=== PATIENT | male | born 1965 | race Caucasian/White ===

== ENCOUNTER 2019-06-29 12:02 | Outpatient (CLI) | payer OTHER, SELFPAY ==
--- NOTE | ~2019-06-29 | XR_ITS ---
EXAMINATION: XR chest 2V DATE: 06/29/2019 12:27 INDICATION: Chest pain, unspecified. Shortness of breath. TECHNIQUE: Frontal and lateral views of the chest were obtained. COMPARISON: Chest 2 views 05/30/2015, CT abdomen and pelvis 03/03/2018 FINDINGS: The chest demonstrates clear lungs without pneumonia, pleural effusion, or pneumothorax. Th e heart size is normal. IMPRESSION: 1. No acute cardiopulmonary disease. Reviewed, dictated and finalized at location A.
--- NOTE | 2019-06-29 12:08 | ECG_ITS ---
Measurements Intervals [place] Rate: 58 P: 57 IA: 187 QRS: 59 QRSD: 91 T: 39 QT: 394 QTc: 387 Interpretive Statements SINUS BRADYCARDIA BORDERLINE ECG Electronically Signed On 06-29-2019 13:43:14 CDT by Dieter Lantigua D.O.
== END 2019-06-29 12:03 | disposition home or self-care (01) ==
PROVIDERS: PCP Family Medicine; Visit Provider Family Medicine
DX: R07.9 Chest pain, unspecified (principal); R94.31 Abnormal electrocardiogram [ECG] [EKG]
CPT/HCPCS: 71046; 93005

== ENCOUNTER → 2020-04-14 12:14 | Outpatient (CLI) | payer OTHER, SELFPAY ==
--- NOTE | ~2020-04-14 | CT_ITS ---
EXAMINATION: CT brain wo con DATE: 04/14/2020 12:28 INDICATION: Headaches TECHNIQUE: Computed tomography (CT) of the head was performed without intravenous contrast. Sagittal and coronal reconstructions were performed. The mA was adjusted according to patient size. Iterative reconstruction technique was employed. The dose-length product was 599.57 mGy-cm. COMPARISON: None FINDINGS: No acute intracranial hemorrhage, acute infarction or abnormal extra axial fluid collection. Ventricl es are normal and symmetric. No mass/mass effect. Scleral banding procedure at the right orbit. Aguilar es of bilateral intraocular lens replacement. Bubbly mucus in the dependent aspect of the left spheno id sinus. Mild mucosal thickening in the bilateral ethmoid and maxillary sinuses. Mastoid air cells a nd middle ear cavities are clear. IMPRESSION: 1. Normal brain. No acute intracranial process. 2. Bubbly mucus in the left sphenoid sinus. Correlate clinically for acute sinusitis. Reviewed, dictated and finalized at location A. COLOGICAL ASSISTANT IMPRESSION: 1. Normal brain. No acute intracranial process. 2. Bubbly mucus in the left sphenoid sinus. Correlate clinically for acute sinu sitis.
== END ==
PROVIDERS: PCP Family Medicine; Visit Provider Family Medicine
DX: R51.9 Headache, unspecified (principal)
CPT/HCPCS: 70450

== ENCOUNTER 2020-09-22 00:39 | Day surgery (SDC) | payer OTHER, SELFPAY ==
[2020-09-12 15:39] VITALS: BMI 31.1
--- NOTE | 2020-09-15 07:08 | P.HP_ITS ---
History of Present Illness History of Present Illness Consent: Risks, benefits, and alternatives have been discussed and questions answered. Patient agrees to proceed with procedure. Chief complaint: Bulbous urethral stricture Narrative: Hesham Duval is a 54 year old male with a known history of urethral stricture disease who is having recurrent obstructive voiding symptoms. We have opted to forego office cystoscopy in proceed straight to cystoscopy with urethral dilatation. Review of Systems Cardiovascular: Cardiovascular: Denies chest pain, Denies lightheadedness, Denies palpitations and Denies dyspnea Respiratory: Respiratory: Denies dyspnea Gastrointestinal: Gastrointestinal: Denies diarrhea, Denies nausea and Denies vomiting Genitourinary: Genitourinary: Denies hematuria and Denies dysuria Endocrine: Endocrine: Denies palpitations PMFSH Past Medical History Medical History Acute non-recurrent maxillary sinusitis BPH without obstruction/lower urinary tract symptoms Chest pain COVID-19 (02/12/20) Encounter for prostate cancer screening Encounter for wellness examination in adult Exposure to COVID-19 virus Family history of brain tumor GERD (gastroesophageal reflux disease) Headache Hemorrhoids Hypogonadism male Male erectile dysfunction, unspecified Mixed hyperlipidemia Screening for malignant neoplasm of colon performed Seasonal allergic rhinitis Shift work sleep disorder Visual changes Surgical History Surgical History H/O elbow surgery (~2016) H/O eye surgery (~2018) H/O hand surgery (~2016) H/O knee surgery (~2008) H/O knee surgery (~2006) Family History Family History Father Hypertension Family history of malignant neoplasm Mother Family history of malignant neoplasm Social History Social History Smoking status: Never smoker Alcohol intake: current Drinks per week: 3 Substance use: never Substance use type: does not use Spiritual care concerns: No Meds Home Medications and Allergies Home Medications Medication Instructions Recorded Confirmed Type multivitamin [Daily Multivitamin] 1 tablet PO DAILY 09/12/20 09/12/20 History Allergies Allergy/AdvReac Type Severity Reaction Status Date / Time Penicillins Allergy Unknown Hives Verified 09/12/20 15:35 Exam Const: General: no acute distress Resp: Effort & Inspection: normal respiratory effort GI: Inspection: non-distended GI Palp: No abdominal tenderness and No Guarding due to palpation present (GI) Auscultation: normal bowel sounds Assessment and Plan Assessment and plan (1) Urethral stricture: Code(s): N35.919 - Unspecified urethral stricture, male, unspecified site Status: Acute Assessment and Plan: * Cystoscopy with urethral dilatation
[2020-09-22 06:04] VITALS: BP 138/81; PULSE 85; RESP 16; TEMP 36.5; O2SAT 95
--- NOTE | 2020-09-22 06:39 | WPDHPUPDATE1 ---
History and Physical Update Update Date/Time: 09/22/20 06:39 History and Physical has been reviewed, including an updated exam of the patient. There are NO changes in the patient's condition. Risks, benefits, and alternatives have been discussed and questions answered. Patient agrees to proceed with procedure.
[2020-09-22] MEDS: LACTATED RINGERS 1,000 ML 30 ML IV CONT (06:55)
--- NOTE | 2020-09-22 07:48 | WPDANESEPPF ---
Anes - Initial Pre Proc Eval Procedure: Operation Date: 09/22/20 08:30 Proposed Procedures p Cystoscopy, Urethral Dilatation - Zachary Aguilar MD Date/Time: 09/22/20 07:48 Surgeon: Zachary Aguilar MD Pre Op Diagnosis: Bulbous urethral stricture Patient Data Age: 54 Gender: M Height: 1.75 m Weight: 95.2 kg Last Vital Signs Temp 36.5 C 09/22/20 06:04 Pulse 85 09/22/20 06:04 Resp 16 09/22/20 06:04 BP 138/81 09/22/20 06:04 Pulse Ox 95 09/22/20 06:04 Allergies Allergy/AdvReac Type Severity Reaction Status Date / Time Penicillins Allergy Unknown Hives Verified 09/12/20 15:35 Home Medications Medication Instructions Recorded Confirmed Type multivitamin [Daily Multivitamin] 1 tablet PO DAILY 09/12/20 09/22/20 History Patient hx anesthesia problems: none Family hx anesthesia problems: none PMFSH Past Medical History Medical History Acute non-recurrent maxillary sinusitis BPH without obstruction/lower urinary tract symptoms Chest pain COVID-19 (02/12/20) Encounter for prostate cancer screening Encounter for wellness examination in adult Exposure to COVID-19 virus Family history of brain tumor GERD (gastroesophageal reflux disease) Headache Hemorrhoids Hypogonadism male Male erectile dysfunction, unspecified Mixed hyperlipidemia Screening for malignant neoplasm of colon performed Seasonal allergic rhinitis Shift work sleep disorder Visual changes Surgical History Surgical History H/O elbow surgery (~2016) H/O eye surgery (~2018) H/O hand surgery (~2016) H/O knee surgery (~2008) H/O knee surgery (~2006) Family History Family History Father Hypertension Family history of malignant neoplasm Mother Family history of malignant neoplasm Social History Social History Smoking status: Never smoker Alcohol intake: current Drinks per week: 3 Substance use: never Substance use type: does not use Living arrangements: with family Spiritual care concerns: No Anes - Eval Final PreProcedure Day of Procedure 09/22/20 07:48 Patient weight: obese Heart: regular rate and rhythm Lungs: clear to auscultation Airway: Mallampati scale class 1 Neurological: alert and oriented Last oral intake: >/= 8 hours ASA classification: II Emergent: no Anesthetic plan: proceed Anesthesia type and monitoring: general LMA and standard monitoring Informed Consent: The patient's anesthetic plan and its attendant risks and benefits were discussed with the patient/family/POA. Questions were solicited and answers provided to the satisfaction of the patient/family/POA.
[2020-09-22] MEDS: levoFLOXacin 500 MG/D5W 100 ML 500 MG/100 ML BAG 100 MG IVPB (08:26)
[2020-09-22] MEDS: KETOROLAC 15 MG/ML VIAL (*BKC) IV PUSH (08:40)
[2020-09-22] MEDS: LIDOCAINE HCL 2% GEL UROJET 10 ML PKG MUCOUS MEM (08:40)
--- NOTE | 2020-09-22 08:42 | W.PM.PROC2 ---
Procedure Note - Detailed Date of Procedure 09/22/20 Pre-op Diagnosis Bulbous urethral stricture Post-op Diagnosis same Procedure Performed Cystoscopy, urethral dilatation Surgeon Zachary Aguilar MD Musician Instrumental None Anesthesia general Indications Recurrent obstructive voiding symptoms Findings Moderately constricting bulbous urethral stricture Description of Procedure The patient was brought to the operative suite where he was prepped and draped in a routine sterile fashion while in a dorsal lithotomy position after the uneventful induction of a general LMA anesthetic. Cystoscopy was undertaken with a []cystoscope. There were no urethral strictures. The prostatic urethral estimated length was 1.5cm. There was mild obstruction of the prostatic urethra with no median lobe enlargement. The bladder itself was endoscopically normal without foreign body or neoplasm. The bladder mucosa was without hyperemia. There was a single orthotopic ureteral orifice bilaterally with clear efflux of urine. Using the [place] sounds I dilated the urethra 16F->18F. The bladder was emptied and the patient was taken to the recovery room in good condition Implants None Estimated Blood Loss 0 Drains No Packing No Pathology none sent Complications No immediate complications Condition stable Disposition PACU
[2020-09-22 08:48] VITALS: BP 103/57; PULSE 56; RESP 8; TEMP 36.2; O2SAT 97
[2020-09-22 09:03] VITALS: BP 131/78; PULSE 69; O2SAT 96
[2020-09-22 09:18] VITALS: BP 122/69; PULSE 60; RESP 10; O2SAT 97
[2020-09-22 09:35] VITALS: BP 142/65; PULSE 62
[2020-09-22 10:05] VITALS: BP 131/55; PULSE 62
--- NOTE | 2020-09-22 10:53 | SUR.PHASEII ---
1040- pt voided, bloody urine.
== END 2020-09-22 10:53 | disposition home or self-care (01) ==
PROVIDERS: PCP Family Medicine; Visit Provider Urology
PROC: 0T7D8ZZ Dilation of Urethra, Via Natural or Artificial Opening Endoscopic (ICD-10-PCS; CPT 52281; principal; 2020-09-22 08:30)
DX: N35.912 Unspecified bulbous urethral stricture, male (principal); Z86.16 Personal history of COVID-19; E66.9 Obesity, unspecified; Z68.31 Body mass index [BMI] 31.0-31.9, adult
CPT/HCPCS: 52281; A9270; J1885; J1956; J3010; J7120

== ENCOUNTER 2022-09-27 06:21 | Day surgery (SDC) | payer OTHER, SELFPAY ==
[2022-09-06 14:40] VITALS: BMI 32.5
[2022-09-12 08:32] VITALS: BMI 32.5
--- NOTE | 2022-09-26 12:05 | PM.HPGS ---
History of Present Illness History of Present Illness Consent: Risks, benefits, and alternatives have been discussed and questions answered. Patient agrees to proceed with procedure. Chief complaint: History of Colon Polyps Narrative: Hesham Duval is a 56 year old male Here for colon cancer screening. He has a history of polyps. Review of Systems Review of Systems: All systems reviewed & are unremarkable except as noted in HPI and below PMFSH Past Medical History Medical History Acute non-recurrent maxillary sinusitis BMI 31.0-31.9,adult BMI 32.0-32.9,adult muscular build BPH without obstruction/lower urinary tract symptoms Chest pain Chronic prostatitis/chronic pelvic pain syndrome COVID-19 (02/12/20) Decreased hearing of both ears Encounter for prostate cancer screening PSA 1.22 on 08/14/2021. Encounter for wellness examination in adult Exposure to COVID-19 virus Family history of brain tumor GERD (gastroesophageal reflux disease) Headache Hemorrhoids Hypogonadism male Testosterone 597 with free testosterone 96.2 on 08/14/2021. total testosterone 1085 with free testosterone 120.8 with hemoglobin 17.2 on 01/04/2022.Testosterone 569 with free testosterone 92.1 on 07/11/2022. Long-term current use of testosterone replacement therapy Male erectile dysfunction, unspecified intra cavernous injections from [facility] 0.1 cc ([id number]/phentolanine3/[id number]) Mixed hyperlipidemia Total cholesterol 181, triglycerides 114, HDL 55, LDL 105 on 08/14/2021. Cholesterol 180, triglycerides 233, HDL 50, LDL 95 on 07/11/2022. Obesity (BMI 30.0-34.9) Pharyngitis Polyp of colon colon polyp age [address] Nava with recheck in 5 years Screening for malignant neoplasm of colon performed Seasonal allergic rhinitis Shift work sleep disorder Visual changes Surgical History Surgical History H/O elbow surgery (~2016) H/O eye surgery (~2018) H/O hand surgery (~2016) H/O knee surgery (~2008) H/O knee surgery (~2006) Family History Family History Father Hypertension Family history of malignant neoplasm Mother Family history of malignant neoplasm Social History Social History Smoking status: Never smoker Alcohol intake: current Drinks per week: 5 Alcohol use details: beer Substance use: never Substance use type: does not use Lack of Transportation: No Lack of Food: Never True Current Housing: I Have Housing Concerned About Future Housing: No Difficulty Paying Gas/Electric Bills: No Difficulty Paying for Meds: No Currently Unemployed: No Education: Trade/Vocational Certificate Difficulty w/ Childcare or Family Care: No Living arrangements: with family Spiritual care concerns: No Meds Home Medications and Allergies Home Medications Medication Instructions Recorded Confirmed Type safety needles 23 gauge x 1 (BD #50 ea 08/01/22 08/01/22 Rx SafetyGlide Needle) syringe with needle, safety 3 mL #50 ea 08/01/22 08/01/22 Rx 18 gauge x 1 1/2 alfuzosin 10 mg tablet,extended 10 mg PO DAILY 09/12/22 09/27/22 History release 24 hr testosterone cypionate 200 mg/mL 200 mg IM WEEKLY #10 mL 09/17/22 09/27/22 Rx intramuscular oil Allergies Allergy/AdvReac Type Severity Reaction Status Date / Time Penicillins Allergy Unknown Hives Verified 09/27/22 06:51 Exam Const: General: alert Orientation/consciousness: patient oriented x3 Resp: Auscultation: clear to auscultation bilaterally Cardio: Rhythm: regular rhythm GI: GI Palp: Yes Soft to palpation and No Tenderness to palpation present (GI) Neuro: General: patient oriented x3 Assessment and Plan Assessment and plan (1) Colon cancer screening: Code(s): Z12.
--- NOTE | 2022-09-26 12:52 | WPDANESEPPF ---
Anes - Initial Pre Proc Eval Procedure: Operation Date: 09/27/22 08:00 Proposed Procedures p Diagnostic Colonoscopy - Jaron Nava MD Date/Time: 09/26/22 12:52 Surgeon: Jaron Nava MD Pre Op Diagnosis: History of Colon Polyps Patient Data Age: 56 Gender: M Height: 1.75 m Weight: 100 kg Allergies Allergy/AdvReac Type Severity Reaction Status Date / Time Penicillins Allergy Unknown Hives Verified 09/27/22 06:51 Home Medications Medication Instructions Recorded Confirmed Type safety needles 23 gauge x 1 (BD #50 ea 08/01/22 08/01/22 Rx SafetyGlide Needle) syringe with needle, safety 3 mL #50 ea 08/01/22 08/01/22 Rx 18 gauge x 1 03/26 alfuzosin 10 mg tablet,extended 10 mg PO DAILY 09/12/22 09/27/22 History release 24 hr testosterone cypionate 200 mg/mL 200 mg IM WEEKLY #10 mL 09/17/22 09/27/22 Rx intramuscular oil Patient hx anesthesia problems: none Family hx anesthesia problems: none Results Review: All pre-operative results and documents have been reviewed as part of the pre-operative evaluation. [facility] Past Medical History Medical History Acute non-recurrent maxillary sinusitis BMI 31.0-31.9,adult BMI 32.0-32.9,adult muscular build BPH without obstruction/lower urinary tract symptoms Chest pain Chronic prostatitis/chronic pelvic pain syndrome COVID-19 (02/12/20) Decreased hearing of both ears Encounter for prostate cancer screening PSA 1.22 on 08/14/2021. Encounter for wellness examination in adult Exposure to COVID-19 virus Family history of brain tumor GERD (gastroesophageal reflux disease) Headache Hemorrhoids Hypogonadism male Testosterone 597 with free testosterone 96.2 on 08/14/2021. total testosterone 1085 with free testosterone 120.8 with hemoglobin 17.2 on 01/04/2022.Testosterone 569 with free testosterone 92.1 on 07/11/2022. Long-term current use of testosterone replacement therapy Male erectile dysfunction, unspecified intra cavernous injections from [email or web address] 0.1 cc ([id number]/phentolanine3/[id number]) Mixed hyperlipidemia Total cholesterol 181, triglycerides 114, HDL 55, LDL 105 on 08/14/2021. Cholesterol 180, triglycerides 233, HDL 50, LDL 95 on 07/11/2022. Obesity (BMI 30.0-34.9) Pharyngitis Polyp of colon colon polyp age [address] Nava with recheck in 5 years Screening for malignant neoplasm of colon performed Seasonal allergic rhinitis Shift work sleep disorder Visual changes Surgical History Surgical History H/O elbow surgery (~2016) H/O eye surgery (~2018) H/O hand surgery (~2016) H/O knee surgery (~2008) H/O knee surgery (~2006) Family History Family History Father Hypertension Family history of malignant neoplasm Mother Family history of malignant neoplasm Social History Social History Smoking status: Never smoker Alcohol intake: current Drinks per week: 5 Alcohol use details: beer Substance use: never Substance use type: does not use Lack of Transportation: No Lack of Food: Never True Current Housing: I Have Housing Concerned About Future Housing: No Difficulty Paying Gas/Electric Bills: No Difficulty Paying for Meds: No Currently Unemployed: No Education: Trade/Vocational Certificate Difficulty w/ Childcare or Family Care: No Living arrangements: with family Spiritual care concerns: No Anes - Eval Final PreProcedure Day of Procedure 09/26/22 12:52 Patient weight: obese Heart: regular rate and rhythm Lungs: clear to auscultation Airway: Mallampati scale class 1 Neurological: alert and oriented Last oral intake: >/= 8 hours ASA classification: II Emergent: no Anesthetic plan: proceed Anesthesia type and monitoring: general GIVS and s
[2022-09-27 06:57] VITALS: BP 135/83; PULSE 66; RESP 16; TEMP 36.4; O2SAT 100
[2022-09-27] MEDS: LACTATED RINGERS 1,000 ML 150 ML IV CONT (07:07)
[2022-09-27 08:21] VITALS: BP 124/81; PULSE 74; RESP 20; O2SAT 100
[2022-09-27 08:31] VITALS: BP 123/83; PULSE 63; RESP 20; O2SAT 100
[2022-09-27 08:41] VITALS: BP 118/79; PULSE 56; RESP 20; O2SAT 100
--- NOTE | 2022-09-27 10:35 | WPDANESPN ---
Anes - Prog Note Post-Op Date/Time: 09/27/22 10:35 Cardiovascular status: normal Respiratory status: normal Airway patency: baseline Mental status: baseline Post-Op hydration status: normal Vital Signs: Last Vital Signs Temp 36.4 C 09/27/22 06:57 Pulse 56 L 09/27/22 08:41 Resp 20 09/27/22 08:41 BP 118/79 09/27/22 08:41 Pulse Ox 100 09/27/22 08:41 O2 Del Method Room Air 09/27/22 08:41 Pain Score (VAS): 0 I/O: Intake & Output 09/26/22 09/27/22 09/27/22 23:59 07:59 15:59 Intake Total 300 Balance 300 Post-procedural complaints: none Patient Feedback: Patient satisfied with anesthetic care.
== END 2022-09-27 08:45 | disposition home or self-care (01) ==
PROVIDERS: PCP Family Medicine; Visit Provider Internal Medicine Gastroenterology
PROC: 0DJD8ZZ Inspection of Lower Intestinal Tract, Via Natural or Artificial Opening Endoscopic (ICD-10-PCS; CPT 45378; principal; 2022-09-27 08:00)
DX: Z12.11 Encounter for screening for malignant neoplasm of colon (principal)
CPT/HCPCS: 45380

== ENCOUNTER 2022-09-27 09:00 | Outpatient (NON) | payer OTHER, SELFPAY | END 2022-09-27 09:01 | disposition home or self-care (01) | LOC: ANHLAB 09-28 08:42 | PROVIDERS: Visit Provider Internal Medicine Gastroenterology | DX: Z12.11 Encounter for screening for malignant neoplasm of colon (principal) | CPT/HCPCS: 88305 ==

== ENCOUNTER 2023-05-27 20:56 | Emergency (ER) | payer OTHER, SELFPAY ==
--- NOTE | 2023-05-27 20:58 | ECG_ITS ---
Measurements Intervals [place] Rate: 101 P: 41 IA: 144 QRS: 40 QRSD: 78 T: 53 QT: 290 QTc: 376 Interpretive Statements SINUS TACHYCARDIA VENTRICULAR PREMATURE COMPLEX NONSPECIFIC T-WAVE ABNORMALITY- INF/LAT LEADS BASELINE ARTIFACT- V5 BORDERLINE ECG COMPARED TO ECG 06/29/2019 12:14:58 SINUS TACHYCARDIA NOW PRESENT T-WAVE ABNORMALITY NOW PRESENT Electronically Signed On 05-28-2023 6:41:44 [employer] HEL[employer] by Dieter Lantigua D.O.
[2023-05-27 21:25] VITALS: BP 143/66; PULSE 100; RESP 20; TEMP 37.6; O2SAT 93
[2023-05-27 21:48] LABS: Influenza A QL RT-PCR Positive (Negative); Influenza B QL RT-PCR Negative (Negative); RSV RNA, RT-PCR Negative (Negative); SARS-CoV-2 RNA PCR Negative (Negative)
--- NOTE | 2023-05-28 00:42 | ED.URI ---
HPI - URI/Sore Throat General Chief Complaint: Upper Respiratory Infection Stated Complaint: sob, cough Time Seen by Provider: 05/28/23 00:10 History of Present Illness HPI Narrative: Patient is a 57-year-old male who presents to the emergency department this evening complaining of a cough and body aches which started on Saturday evening. 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 Patient admits that he has been running low-grade fevers today. He denies any shortness of breath, stating that the only thing that is bothering him is a Aurelio cough. Cough is nonproductive of any sputum. Patient is currently denying any additional symptoms including chest pain, nausea, vomiting, abdominal pain, dysuria or hematuria. He also denies any headaches, dizziness, or lightheadedness. There are no other modifying, alleviating, or precipitating factors at this time. Related Data Home Medications Medication Instructions Recorded Confirmed alfuzosin 10 mg tablet,extended 10 mg PO DAILY 09/12/22 02/07/23 release 24 hr Allergies Allergy/AdvReac Type Severity Reaction Status Date / Time Penicillins Allergy Unknown Hives Verified 02/07/23 11:22 Review of Systems Review of Systems: All systems are reviewed and are negative unless stated otherwise in the HPI. [facility] Past Medical History Medical History Acute non-recurrent maxillary sinusitis BMI 31.0-31.9,adult BMI 32.0-32.9,adult muscular build BPH without obstruction/lower urinary tract symptoms Chest pain Chronic prostatitis/chronic pelvic pain syndrome COVID-19 (02/12/20) Decreased hearing of both ears Encounter for prostate cancer screening PSA 1.22 on 08/14/2021. Encounter for wellness examination in adult Exposure to COVID-19 virus Family history of brain tumor GERD (gastroesophageal reflux disease) Headache Hemorrhoids Hypogonadism male Testosterone 597 with free testosterone 96.2 on 08/14/2021. total testosterone 1085 with free testosterone 120.8 with hemoglobin 17.2 on 01/04/2022.Testosterone 569 with free testosterone 92.1 on 07/11/2022. Testosterone 776 with free testosterone 151.8 on 01/18/2023. Long-term current use of testosterone replacement therapy Male erectile dysfunction, unspecified intra cavernous injections from [facility] 0.1 cc (/phentolanine3/[id number]) Mixed hyperlipidemia Total cholesterol 181, triglycerides 114, HDL 55, LDL 105 on 08/14/2021. Cholesterol 180, triglycerides 233, HDL 50, LDL 95 on 07/11/2022. Total cholesterol 186, HDL 52, triglycerides 46, LDL 108 with ratio 3.6 on 01/18/2023. Obesity (BMI 30.0-34.9) Pharyngitis Polyp of colon colon polyp age [address] Nava with recheck in 5 years Screening for malignant neoplasm of colon performed Seasonal allergic rhinitis Shift work sleep disorder Visual changes Surgical History Surgical History H/O elbow surgery (~2016) H/O eye surgery (~2018) H/O hand surgery (~2016) H/O knee surgery (~2008) H/O knee surgery (~2006) Family History Family History Father Hypertension Family history of malignant neoplasm Mother Family history of malignant neoplasm Social History Social History Smoking status: Never smoker Alcohol intake: current Drinks per week: 5 Alcohol use details: beer Substance use: never Substance use type: does not use Lack of Transportation: No Lack of Food: Never True Current Housing: I Have Housing Concerned About Future Housing: No Difficulty Paying Gas/Electric Bills: No Difficulty Paying for Meds: No Currently Unemployed: No Education: Trade/Vocational Certificate Difficulty w/ Childcare or Family Care
[2023-05-28] MEDS: OSELTAMIVIR PHOSPHATE 75 MG CAPSULE PO (00:58)
[2023-05-28 01:05] VITALS: BP 144/84; PULSE 89; RESP 17; TEMP 37.2; O2SAT 99
== END 2023-05-28 01:06 | disposition home or self-care (01) ==
PROVIDERS: Emergency Provider Emergency Medicine; PCP Family Medicine
DX: J10.1 Influenza due to other identified influenza virus with other respiratory manifestations (principal); N40.0 Benign prostatic hyperplasia without lower urinary tract symptoms; N41.9 Inflammatory disease of prostate, unspecified; E78.2 Mixed hyperlipidemia; E66.9 Obesity, unspecified; Z68.32 Body mass index [BMI] 32.0-32.9, adult; K21.9 Gastro-esophageal reflux disease without esophagitis; E29.1 Testicular hypofunction; N52.9 Male erectile dysfunction, unspecified; Z86.010 Personal history of colon polyps; Z86.16 Personal history of COVID-19; Z79.890 Hormone replacement therapy; R00.0 Tachycardia, unspecified; I49.3 Ventricular premature depolarization; R94.31 Abnormal electrocardiogram [ECG] [EKG]
CPT/HCPCS: 87637; 93005; 99283; A9270

== ENCOUNTER 2024-02-08 18:43 | Emergency (ER) | payer OTHER, SELFPAY ==
[2024-02-08 18:45] VITALS: BP 159/70; PULSE 72; RESP 18; TEMP 36.7; O2SAT 98
--- NOTE | 2024-02-08 19:18 | PC.NURSE ---
Report received from MARZENA Booth. Assumed care of patient at this time.
--- NOTE | 2024-02-08 19:29 | ED_ITS ---
HPI - General Adult General Chief complaint: Environmental Exposure Stated complaint: body fluid exposure Time Seen by Provider: 02/08/24 18:51 Source: patient Mode of arrival: ambulatory Limitations: no limitations History of Present Illness HPI narrative: This is a 58-year-old male who presents to the ED for possible blood exposure. 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 reports that 1 of the EMS workers told him that she had blood on her fingers. While attempting to transfer her to stretcher she accidentally stuck her finger in the patient's mouth. He states that he is unsure if he was actually exposed her blood or not. They are unsure of her medical history including HIV and hepatitis but does note that she is an IV drug user. Otherwise patient has no complaints. Related Data Home Medications Medication Instructions Recorded Confirmed alfuzosin 10 mg tablet,extended 10 mg PO DAILY 09/12/22 08/26/23 release 24 hr tadalafil 5 mg tablet (Cialis) 5 mg PO DAILY 08/26/23 08/26/23 Allergies Allergy/AdvReac Type Severity Reaction Status Date / Time Penicillins Allergy Unknown Hives Verified 02/08/24 18:49 Review of Systems Review of Systems: All systems as dictated in [facility] Past Medical History Medical History (Updated 08/26/23 @ 10:18 by Laina Hernandez NP) Acute non-recurrent maxillary sinusitis BMI 31.0-31.9,adult BMI 32.0-32.9,adult muscular build BPH without obstruction/lower urinary tract symptoms Chest pain Chronic prostatitis/chronic pelvic pain syndrome COVID-19 (02/12/20) Decreased hearing of both ears Encounter for prostate cancer screening PSA 1.22 on 08/14/2021. PSA 1.66 on 07/16/2023. Encounter for wellness examination in adult Exposure to COVID-19 virus Family history of brain tumor GERD (gastroesophageal reflux disease) Headache Hemorrhoids Hypersomnia Hypogonadism male Testosterone 597 with free testosterone 96.2 on 08/14/2021. total testosterone 1085 with free testosterone 120.8 with hemoglobin 17.2 on 01/04/2022.Testosterone 569 with free testosterone 92.1 on 07/11/2022. Testosterone 776 with free testosterone 151.8 on 01/18/2023. Influenza A (~05/27/23) Long-term current use of testosterone replacement therapy Male erectile dysfunction, unspecified intra cavernous injections from [facility] 0.1 cc ([id number]/phentolanine3/[id number]) Mixed hyperlipidemia Total cholesterol 181, triglycerides 114, HDL 55, LDL 105 on 08/14/2021. Cholesterol 180, triglycerides 233, HDL 50, LDL 95 on 07/11/2022. Total cholesterol 186, HDL 52, triglycerides 46, LDL 108 with ratio 3.6 on 01/18/2023. Obesity (BMI 30.0-34.9) Pharyngitis Polyp of colon colon polyp age [address] Nava with recheck in 5 years Screening for malignant neoplasm of colon performed Seasonal allergic rhinitis Shift work sleep disorder Snoring Visual changes Surgical History Surgical History H/O elbow surgery (~2016) H/O eye surgery (~2018) H/O hand surgery (~2016) H/O knee surgery (~2008) H/O knee surgery (~2006) Family History Family History Father Hypertension Family history of malignant neoplasm Mother Family history of malignant neoplasm Social History Social History Smoking status: Never smoker Alcohol intake: current Drinks per week: 5 Alcohol use details: beer Substance use: never Substance use type: does not use Lack of Transportation: No Lack of Food: Never True Current Housing: I Have Housing Concerned About Future Housing: No Difficulty Paying Gas/Electric Bills: No Difficulty Paying for Meds: No Currently Unemployed: No Education: Trade/Vocational Certificate Difficulty w/ Childcare or Family Care: No Living arrangements: with family Spiritual care concerns: No Exam Narrative: GENERAL: Well-appearing, well-nourished, and in no acute distress. HEAD: Normocephalic, atraumatic. MSK: Normal range of motion. No edema. SKIN: Warm, dry, no rash. NEURO: Alert and oriented x4. No focal deficits. PSYCH: Normal mood and affect. Course Vital Signs Vital signs: Vital Signs Temperature 98.0 F 02/08/24 18:45 Pulse Rate 72 02/08/24 18:45 Respiratory Rate 18 02/08/24 18:45 Blood Pressure 159/70 H 02/08/24 18:45 Pulse Oximetry 98 02/08/24 18:45 Oxygen Delivery Room Air 02/08/24 18:45 Temperature 98.0 F 02/08/24 18:45 Pulse Rate 72 02/08/24 18:45 Respiratory Rate 18 02/08/24 18:45 Blood Pressure 159/70 H 02/08/24 18:45 Pulse Oximetry 98 02/08/24 18:45 Oxygen Delivery Room Air 02/08/24 18:45 Medical Decision Making MDM Narrative Medical decision making narrative: This is a 58 yo male who presents to the ED for possible bodily fluid exposure. 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 Vitals are normal. No other complaints. Patient did have possible mucosal exposure to another person's blood. He is concerned that this person is a chronic IV drug user. This does but the patient at possible HIV risk. I explained that given his story, he would fall into the likely low risk category but offered PEP regardless. He would like for the prescriptions to be sent and he will to contact his PCP on Saturday. This will allow him to stay within the 72 hour window and have PCP follow-up on this issue. Patient will be discharged in stable condition. Supportive measures discussed and return precautions given. Patient is understanding and agreeable with plan for discharge with PCP follow-up. Vital Signs Vital Signs: Vital Signs Temperature 98.0 F 02/08/24 18:45 Pulse Rate 72 02/08/24 18:45 Respiratory Rate 18 02/08/24 18:45 Blood Pressure 159/70 H 02/08/24 18:45 Pulse Oximetry 98 02/08/24 18:45 Oxygen Delivery Room Air 02/08/24 18:45 Temperature 98.0 F 02/08/24 18:45 Pulse Rate 72 02/08/24 18:45 Respiratory Rate 18 02/08/24 18:45 Blood Pressure 159/70 H 02/08/24 18:45 Pulse Oximetry 98 02/08/24 18:45 Oxygen Delivery Room Air 02/08/24 18:45 Lab Data Labs: Lab Results 02/08/24 Range/Units 19:16 Hep Bs Antibody Negative Hepatitis C Ab Screen Negative (Negative) HIV 1&2 Ab/P24 Ag 4thGn Negative (Negative) Discharge Plan Discharge Clinical Impression: Occupational exposure in workplace Patient Disposition: Home, Self-Care Condition: Stable Instructions: Antibiotic Form Additional Instructions: Your exposure level today is probably very low. HIV prophylaxis medications have been prescribed. Please follow-up with your PCP on Saturday for definitive management. If you have any new or worsening symptoms please return to the ER for further evaluation. Prescriptions: New raltegravir 400 mg tablet 400 mg PO BID 28 Days Qty: 56 0RF emtricitabine-tenofovir (TDF) [Truvada] 200-300 mg tablet 1 tablet PO DAILY 28 Days Qty: 28 0RF No Action (DME) BD SafetyGlide Needle 23 gauge x 1 needle See Rx Instructions .Route Qty: 50 1RF Rx Instructions: 23 gauge x 1 in, use weekly to inject testosterone (DME) syringe with needle, safety 3 mL 18 gauge x 1 1/2 syringe See Rx Instructions .Route Qty: 50 1RF Rx Instructions: 18 gauge 1-1/2 inch needle,use once weekly to draw up testosterone tadalafil [Cialis] 5 mg tablet 5 mg PO DAILY hydrocortisone [Anusol-HC] 2.5 % cream with perineal applicator 1 applic RECTAL BID PRN (Reason: hemorrhoids) Qty: 30 11RF fluticasone propionate [Flonase Allergy Relief] 50 mcg/actuation spray,suspension 1 spray intranasal BID Qty: 16 1RF Rx Instructions: administer into each nostril testosterone cypionate 200 mg/mL oil 200 mg IM WEEKLY Qty: 10 2RF doxycycline hyclate 100 mg tablet 100 mg PO BID Qty: 20 0RF alfuzosin 10 mg tablet extended release 24 hr 10 mg PO DAILY Follow-up/Referrals: Neil Akbar MD [Primary Care Provider] - Time of Disposition: 19:34
[2024-02-08 20:15] LABS: HIV 1/2 Ab P24 Ag Result Negative (Negative)
[2024-02-08 20:23] LABS: Hepatitis B Surface Anti Res Negative; Hepatitis C Virus Antibody Negative (Negative)
== END 2024-02-08 19:49 | disposition home or self-care (01) ==
PROVIDERS: Emergency Medicine; Emergency Provider Physician Assistant; PCP Family Medicine
DX: Z77.21 Contact with and (suspected) exposure to potentially hazardous body fluids (principal); E78.2 Mixed hyperlipidemia; E66.9 Obesity, unspecified; Z68.32 Body mass index [BMI] 32.0-32.9, adult; K21.9 Gastro-esophageal reflux disease without esophagitis; N40.0 Benign prostatic hyperplasia without lower urinary tract symptoms; G47.26 Circadian rhythm sleep disorder, shift work type; Z86.16 Personal history of COVID-19; Z86.0100 Personal history of colon polyps, unspecified; Z79.899 Other long term (current) drug therapy; Z79.890 Hormone replacement therapy
CPT/HCPCS: 36415; 86703; 86706; 86803; 99283; G0432

== ENCOUNTER → 2024-05-27 10:42 | Outpatient (CLI) | payer OTHER, SELFPAY ==
--- NOTE | ~2024-05-27 | XR_ITS ---
XR cervical spine 4-5V Ordering provider: Neil Akbar MD History: . M54.2 - Cervicalgia . Comparison: None. FINDINGS: VERTEBRAL BODIES: Normal height and alignment. No visible fracture or subluxation. The dens is intact . DISK SPACES: Well maintained. PARASPINOUS SOFT TISSUES: No prevertebral soft tissue swelling. IMPRESSION: No acute osseous abnormality cervical spine. Reviewed, dictated and finalized at location A. RAL STORES ATTENDANT
--- OUTSIDE RECORDS SUMMARY | 2024-05-27 12:15 | XMS_ITS | Referral Summary ---
Author Organization [facility] Address [address] [place] [address] Care Team Providers Care Nuclear Design Engineer Name Role Phone Yobany Grimes MD Unavailable Neil Akbar MD Primary Care Provider [phone] Source Comments [facility],non-owned Affiliates and Associated Physician Practices is amultiple site organization consisting of ambulatory clinics and hospital sitesin [place], [place], [place] and [place]. This disclosure is being madepursuant to the Care Everywhere program and may not contain all information available regarding this patient. Last updated 17.[facility] Encounters Date Type Department Care Team Description 03/27/2024 Telephone [facility] [address] [place] [address] Naa Humphries APRN-CNP Follow-up 03/13/2024 Travel 03/13/2024 9:30 AM ENGLISH COMPOSITION TEACHER Office Visit [facility] - Urology [address] [place] [address] Naa Humphries APRN-CNP BPH with obstruction/lower urinary tract symptoms (Primary Dx); Urinary frequency; Nocturia; Overactive bladder; Erectile dysfunction, unspecified erectile dysfunction type from Last 3 Months Allergies Active Allergy Reactions Criticality Noted Date Comments Penicillins Urticaria Medium 07/07/2016 Medications * Be aware that medications may not be up to date on this document. Alwaysverify current medications with the patient. Medication Sig Dispensed Refills Start Date End Date Status testosterone cypionate (Depo-Testostero ne) 200 MG/ML injection INJECT 200 MG INTRAMUSCULARLY WEEKLY A SINGLE DOSE 12/25/2022 Active tadalafil (Cialis) 10 MG tabletIndication s:BPH with obstruction/lowe r urinary tract symptoms Take 1 (one) tablet by mouth once daily as needed (before sex for a better erection) 30 tablet 2 12/20/2023 Active tamsulosin (Flomax) 0.4 MG capsule Take 1 (one) capsule by mouth once daily At the same time every day after a meal. 30 capsule 3 03/13/2024 Active Active Problems Problem Noted Date Diagnosed Date GERD (gastroesophageal reflux disease) 0 Social History Tobacco Use Types Packs/Day Years Used Date Smoking Tobacco: Never Smokeless Tobacco: Never Tobacco Cessation:Counseling Given: Not Answered Alcohol Use Standard Drinks/Week Comments Yes 0 (1 standard drink = 0.6 oz pur e alcohol) socially Sex and Gender Information Value Date Recorded Sex Assigned at Not on file Gender Identity Not on file Sexual Orientation Not on file Last Filed Vital Signs Vital Sign Reading Time Taken Comments Blood Pressure 134/79 03/13/2024 9:15 AM ENGLISH COMPOSITION TEACHER Pulse 73 03/13/2024 9:15 AM ENGLISH COMPOSITION TEACHER Temperature 36.6 C (97.9 F) 03/13/2024 9:15 AM ENGLISH COMPOSITION TEACHER Respiratory Rate 18 03/13/2024 9:15 AM ENGLISH COMPOSITION TEACHER Oxygen Saturation 97% 03/13/2024 9:15 AM ENGLISH COMPOSITION TEACHER Inhaled Oxygen Concentration - - Weight 100.7 kg (222 lb) 03/13/2024 9:15 AM ENGLISH COMPOSITION TEACHER Height 175.3 cm (5' 9 ) 03/13/2024 9:15 AM ENGLISH COMPOSITION TEACHER Body Mass Index 32.78 03/13/2024 9:15 AM ENGLISH COMPOSITION TEACHER Plan of Treatment Upcoming Encounters Date Type Department Care Team (Late st Contact Info) Description 08/10/2024 1:30 PM CDT Office Visit [facility] - Urology [address] [place] [address] [address] [place] [address] Naa Humphries, PUBLIC HEALTH SERVICE OFFICER-MANAGER PRIVACY [address] [facility] [place] [address] Procedures Procedure Name Priority Date/Time Associated Diagnosis Comments PSA FREE + TOTAL PANEL Routine 03/21/2024 8:00 AM ENGLISH COMPOSITION TEACHER BPH with obstruction/lower urinary tract symptoms [place] MSR PVR U&/BLADD CAPCTY US NON Routine 03/13/2024 10:13 AM ENGLISH COMPOSITION TEACHER BPH with obstruction/lower urinary tract symptoms from Last 3 Months Results * PSA FREE + TOTAL PANEL (03/21/2024 8:00 AM ENGLISH COMPOSITION TEACHER) PSA TNP ng/mL [facility] Comment: TEST NOT PERFORMED Due to a laboratory error, we are unable to perform this test. Specimen exceeded stability due to incorrect storage. NO COLLECTION DATE RECEIVED. WE HAVE USED THE DATE THE SPECIMEN WAS RECEIVED BY THIS LABORATORY THE COLLECTION DATE. IF THIS IS INCORRECT, PLEASE CONTACT CLIENT SERVICES. PHONE NUMBER: [phone] Test Performed at: [facility] [address] [address] LUIZA SPENCER Blood BLOOD SPECIMEN / Unknown 03/14/2024 2:39 PM ENGLISH COMPOSITION TEACHER Naa RE[facility] - CHEMISTRY ORDERABLES [facility] [id number] [place] [address] * [place] MSR PVR U&/BLADD CAPCTY US NON (03/13/2024 10:13 AM ENGLISH COMPOSITION TEACHER) Narrative Naa Humphries APRN-CNP - 03/13/2024 10:13 AM ENGLISH COMPOSITION TEACHER Naa Humphires APRN-CNP 03/13/2024 10:13 AM PVR 17ml Naa REESE PROCEDURE/MINOR SURGICAL ORDERABLES from Last 3 Months Care Teams Nuclear Design Engineer Relationship Specialty Start Date End Date Neil Akbar MD [address] [place] [address] PCP - General 03/13/21 Yobany Grimes MD [facility] [place] [address] Family Medicine 09/20/20
--- OUTSIDE RECORDS SUMMARY | 2024-05-27 12:15 | XMS_ITS | Clinical Summary ---
Author Organization [facility] Address [address] [place] [address] Care Team Providers Care Pitch Worker Name Role Phone Yobany Grimes MD Unavailable Neil Akbar MD Primary Care Provider [phone] Source Comments [facility],non-owned Affiliates and Associated Physician Practices is amultiple site organization consisting of ambulatory clinics and hospital sitesin [place], [place] and [place]. This disclosure is being madepursuant to the Care Everywhere program and may not contain all information available regarding this patient. Last updated 17.[facility] Allergies Active Allergy Reactions Criticality Noted Date [...] Diagnosed Date GERD (gastroesophageal reflux disease) 0 Encounters Date Type Department Care Team Description 03/27/2024 Telephone [facility] [address] [place] [address] Naa Humphries APRN-CNP Follow-up 03/13/2024 9:30 AM SPRING PRODUCTION SUPERVISOR Office Visit [facility] - Urology [address] [place] [address] Naa Humphries APRN-CNP BPH with obstruction/lower urinary tract symptoms (Primary Dx); Urinary frequency; Nocturia; Overactive bladder; Erectile dysfunction, unspecified erectile dysfunction type 03/13/2024 Travel from Last 3 Months Social History Tobacco Use Types Packs/Day Years [...] Comments Blood Pressure 134/79 03/13/2024 9:15 AM SPRING PRODUCTION SUPERVISOR Pulse 73 03/13/2024 9:15 AM SPRING PRODUCTION SUPERVISOR Temperature 36.6 C (97.9 F) 03/13/2024 9:15 AM SPRING PRODUCTION SUPERVISOR Respiratory Rate 18 03/13/2024 9:15 AM SPRING PRODUCTION SUPERVISOR Oxygen Saturation 97% 03/13/2024 9:15 AM SPRING PRODUCTION SUPERVISOR Inhaled Oxygen Concentration - - Weight 100.7 kg (222 lb) 03/13/2024 9:15 AM SPRING PRODUCTION SUPERVISOR Height 175.3 cm (5' 9 ) 03/13/2024 9:15 AM SPRING PRODUCTION SUPERVISOR Body Mass Index 32.78 03/13/2024 9:15 AM SPRING PRODUCTION SUPERVISOR Plan of Treatment Upcoming Encounters Date Type Department Care Team (Late st Contact Info) Description 08/10/2024 1:30 PM CDT Office Visit [facility] - Urology [address] [place] [address] [address] [place] [address] Naa Humphries APRN-CNP [address] [facility] [place] [address] Health Maintenance Due Date Last Done Comments COLOGUARD (AGES 45-75) - COL ON CA SCREENING 1967 COLON MONITORING 1967 COLONOSCOPY - COLON CA SCREENING 1967 CT COLONOGRAPHY - COLON CA SCREENING 1967 Colorectal Cancer Screening 1967 FIT - COLON CA SCREENING 1967 FLEX SIG - COLON CA SCREENING 1967 LIPID TESTING 1967 HIV SCREENING 12/16/1982 HEPATITIS C SCREENING 12/12/1985 DTAP/TDAP/TD VACCINES (1 - Tdap) 12/16/1986 HEPATITIS B VACCINE (1 of 3 - 19+ 3-dose series) 12/16/1986 PNEUMOCOCCAL VACCINE 50+ (1 of 1 - PCV) 12/16/2017 ZOSTER VACCINE (1 of 2) 12/16/2017 SCREENING FOR DIABETES 01/14/2023 COVID-19 VACCINE (1 - 2023-2 5 season) 2023 INFLUENZA VACCINE (#1) 2023 DEPRESSION SCREENING 03/25/2024 HIB VACCINE Aged Out No longer eligi ble based on patient's age to complete this topic HPV VACCINE Aged Out No longer eligi ble based on patient's age to complete this topic MENINGOCOCCAL (Group B) VACCINE Aged Out No longer eligible based on patient's age to complete this topic MENINGOCOCCAL VACCINE Aged Out No camilla leland eligible based on patient's age to complete this topic Procedures Procedure Name Priority Date/Time Associated Diagnosis Comments PSA FREE + TOTAL PANEL Routine 03/21/2024 8:00 AM SPRING PRODUCTION SUPERVISOR BPH with obstruction/lower urinary tract symptoms OR MSR PVR U&/BLADD CAPCTY US NON Routine 03/13/2024 10:13 AM SPRING PRODUCTION SUPERVISOR BPH with obstruction/lower urinary tract symptoms from Last 3 Months Results * PSA FREE + TOTAL PANEL (03/21/2024 8:00 AM SPRING PRODUCTION SUPERVISOR) PSA TNP ng/mL [facility] Comment: TEST NOT PERFORMED Due to a laboratory error, we are unable to perform this test. Specimen exceeded stability due to incorrect storage. NO COLLECTION DATE RECEIVED. WE HAVE USED THE DATE THE SPECIMEN WAS RECEIVED BY THIS LABORATORY THE COLLECTION DATE. IF THIS IS INCORRECT, PLEASE CONTACT CLIENT SERVICES. PHONE NUMBER: [phone] Test Performed at: [facility] [place] [address] [place] [address] LUIZA SPENCER Blood BLOOD SPECIMEN / Unknown 03/14/2024 2:39 PM SPRING PRODUCTION SUPERVISOR Naa Humphries COLORING ROOM WORKER-GRAVEL SCREENER LAB - CHEMISTRY ORDERABLES [facility] [id number] [place] [address] * [place] MSR PVR U&/BLADD CAPCTY US NON (03/13/2024 10:13 AM SPRING PRODUCTION SUPERVISOR) Narrative Naa Humphries COLORING ROOM WORKER-GRAVEL SCREENER - 03/13/2024 10:13 AM SPRING PRODUCTION SUPERVISOR Naa Humphries COLORING ROOM WORKER-GRAVEL SCREENER 03/13/2024 10:13 AM PVR 17ml Naa Humphries COLORING ROOM WORKER-GRAVEL SCREENER PROCEDURE/MINOR SURGICAL ORDERABLES from Last 3 Months Care Teams Pitch Worker Relationship Specialty Start Date End Date Neil Akbar MD [address] [place] [address] PCP - General 03/13/21 Yobany Grimes MD [facility] [place] [address] Family Medicine 09/20/20
--- OUTSIDE RECORDS SUMMARY | 2024-05-27 12:15 | XMS_ITS | Patient Health Summary ---
Author Organization [facility] Address [address] [place] [address] Care Team Providers Care Refrigeration Plant Cork Insulator Name Role Phone Yobany Grimes MD Unavailable Neil Akbar MD Primary Care Provider [phone] Note from [facility],non-owned Affiliates and Associated Physician Practices is amultiple site organization consisting of ambulatory clinics and hospital sitesin [place], [place], [place]. This disclosure is being madepursuant to the Care Everywhere program and may not contain all information available regarding this patient. Last updated 17.[facility] Allergies * Penicillins(Urticaria) -Medium Criticality Medications * Be aware that medications may not be up to date on this document. Alwaysverify current medications with the patient. * testosterone cypionate (Depo-Testosterone) 200 MG/ML injection(Started 12/25/2022) INJECT 200 MG INTRAMUSCULARLY WEEKLY A SINGLE DOSE * tadalafil (Cialis) 10 MG tablet(Started 12/20/2023) Take 1 (one) tablet by mouth once daily as needed (before sex for a better erection) 2 refills by 12/19/2024 * tamsulosin (Flomax) 0.4 MG capsule(Started 03/13/2024) Take 1 (one) capsule by mouth once daily At the same time every day after a meal. 3 refills by 03/13/2025 Active Problems Problem Noted Date Diagnosed Date [...] Comments Blood Pressure 134/79 03/13/2024 9:15 AM ADMINISTRATIVE SUPPORT MANAGER Pulse 73 03/13/2024 9:15 AM ADMINISTRATIVE SUPPORT MANAGER Temperature 36.6 C (97.9 F) 03/13/2024 9:15 AM ADMINISTRATIVE SUPPORT MANAGER Respiratory Rate 18 03/13/2024 9:15 AM ADMINISTRATIVE SUPPORT MANAGER Oxygen Saturation 97% 03/13/2024 9:15 AM ADMINISTRATIVE SUPPORT MANAGER Inhaled Oxygen Concentration - - Weight 100.7 kg (222 lb) 03/13/2024 9:15 AM ADMINISTRATIVE SUPPORT MANAGER Height 175.3 cm (5' 9 ) 03/13/2024 9:15 AM ADMINISTRATIVE SUPPORT MANAGER Body Mass Index 32.78 03/13/2024 9:15 AM ADMINISTRATIVE SUPPORT MANAGER Procedures * PSA FREE + TOTAL PANEL(Performed 03/21/2024) Performed for BPH with obstruction/lower urinary tract symptoms * MA MSR PVR U&/BLADD CAPCTY US NON(Performed 03/13/2024) Performed for BPH with obstruction/lower urinary tract symptoms * PROC UROFLOWMETRY(Performed 12/20/2023) Performed for BPH with obstruction/lower urinary tract symptoms * MA MSR PVR U&/BLADD CAPCTY US NON(Performed 12/20/2023) Performed for BPH with obstruction/lower urinary tract symptoms * MA CYSTOURETHROSCOPY(Performed 03/29/2023) Performed for Overactive bladder, BPH with obstruction/lower urinary tract symptoms * MA INTRAABDOMINAL PRESSURE TEST(Performed 03/29/2023) Performed for Overactive bladder, BPH with obstruction/lower urinary tract symptoms * MA ANAL/URINARY MUSCLE STUDY(Performed 03/29/2023) Performed for Overactive bladder, BPH with obstruction/lower urinary tract symptoms * MA ELECTRO-UROFLOWMETRY, FIRST(Performed 03/29/2023) Performed for Overactive bladder, BPH with obstruction/lower urinary tract symptoms * MA CYSTOMETROGRAM W/PELT DROPPER(Performed 03/29/2023) Performed for Overactive bladder, BPH with obstruction/lower urinary tract symptoms * URINALYSIS AUTO - POINT OF CARE (AMB) [facility](Performed 03/29/2023) Performed for Overactive bladder * URINALYSIS AUTO - POINT OF CARE (AMB) [facility](Performed 01/14/2023) Performed for Urinary frequency, Pelvic pain * DERMATOPATHOLOGY(Performed 09/19/2020) * DERMATOPATHOLOGY(Performed 05/02/2017) * DERMATOPATHOLOGY(Performed 01/08/2017) * STREP A SCREEN - POINT OF CARE (AMB) [facility](Performed 07/07/2016) Performed for Acute pharyngitis, unspecified etiology * DERMATOPATHOLOGY(Performed 10/04/2015) Results * PSA FREE + TOTAL PANEL (03/21/2024 8:00 AM ADMINISTRATIVE SUPPORT MANAGER) PSA TNP ng/mL [facility] Comment: TEST NOT PERFORMED Due to a laboratory error, we are unable to perform this test. Specimen exceeded stability due to incorrect storage. NO COLLECTION DATE RECEIVED. WE HAVE USED THE DATE THE SPECIMEN WAS RECEIVED BY THIS LABORATORY THE COLLECTION DATE. IF THIS IS INCORRECT, PLEASE CONTACT CLIENT SERVICES. PHONE NUMBER: [phone] Test Performed at: [facility] [address] [address] LUIZA SPENCER Blood BLOOD SPECIMEN / Unknown 03/14/2024 2:39 PM ADMINISTRATIVE SUPPORT MANAGER Naa REESE LAB - CHEMISTRY ORDERABLES [facility] [address] [place] [address] * MA MSR PVR U&/BLADD CAPCTY US NON (03/13/2024 10:13 AM ADMINISTRATIVE SUPPORT MANAGER) Narrative Naa Humphries APRN-CNP - 03/13/2024 10:13 AM ADMINISTRATIVE SUPPORT MANAGER Naa Humphries APRN-CNP 03/13/2024 10:13 AM PVR 17ml Naa REESE PROCEDURE/MINOR SURGICAL ORDERABLES * PROC UROFLOWMETRY (12/20/2023 10:20 AM CDT) Narrative Ramona Membreno LPN - 12/20/2023 10:20 AM CDT Ramona Membreno LPN 12/20/2023 1:14 PM Voiding Time T100 106.7 s Flow Time TQ 106.6 s Time to max Flow TQmax 4.2 s Max Flow Rate Qmax 8.5Ml/s Average Flow Rate Qave 4.4Ml/s Intervals 1 Voided Volume Vcomp 466ml Naa Haynesman JEWELRY STORE MANAGER-FIELD CARE COORDINATOR PROCEDURE/MINOR SURGICAL ORDERABLES * MA MSR PVR U&/BLADD CAPCTY US NON (12/20/2023 10:20 AM CDT) Narrative Ramona Membreno LPN - 12/20/2023 10:20 AM CDT Ramona Membreno LPN 12/20/2023 1:14 PM Bladder Scan performed on 11/13/2023: Results showinmL Naa Humphries JEWELRY STORE MANAGER-FIELD CARE COORDINATOR PROCEDURE/MINOR SURGICAL ORDERABLES * MA CYSTOURETHROSCOPY (03/29/2023 12:06 PM ADMINISTRATIVE SUPPORT MANAGER) Narrative Rohan Dodson MD - 03/29/2023 12:06 PM ADMINISTRATIVE SUPPORT MANAGER Rohan Dodson MD 03/29/2023 12:07 PM Cystoscopy procedure note Indication for Procedure: urinary frequency/urgency, incomplete emptying, hx of possible stricture Description: Pt placed on the procedure table in supine position. he was prepped/draped in standard fashion. Pt correctly identified and time out performed. A flexible cystoscope was introduced per urethra withthe following findings. Urethra: Normal caliber, no stricture. No masses. Urethral sphincter with good coaptation Prostate - positive prostatic hyperplasia present Verumontanum in normal position Bladder neck patent without contracture Trigone - UO's orthotopic bilaterally. Clear efflux seen from both ureteral orifices. Mucosa normal without lesion. + intravesical component of prostate present Bladder - normal mucosa without tumor/stone/erythema. No FB present. Mild trabeculation. No cellules or diverticula. No fistula. Scope was retroflexed to assess entire surface of bladder. IMPRESSION: BPH with irritative voiding sx PLAN: See uds note. Rohan Dodson MD Rohan Dodson MD PROCEDURE/MINOR LAURA RGICAL ORDERABLES * MA CYSTOMETROGRAM W/PELT DROPPER, MA ELECTRO-UROFLOWMETRY, FIRST, MA ANAL/URINARY MUSCLE STUDY, MA INTRAABDOMINAL PRESSURE TEST (03/29/2023 12:02 PM ADMINISTRATIVE SUPPORT MANAGER) Narrative Rohan Dodson MD - 03/29/2023 12:02 PM ADMINISTRATIVE SUPPORT MANAGER Rohan Dodson MD 03/29/2023 12:07 PM Urodynamic Results Indication for Procedure: urinary frequency, sensation of incomplete emptying. Hx of possible urethral stricture (though none seen on cysto - see previous note) Noninvasive Uroflow: Qmax: 11 ml/s Qave: 4 ml/s Voided Volume: 320 ml Voiding time: 76 sec PVR: 150 ml Curve shape: flat, intermittent Comments: c/w obstruction Cystometrogram: First Sensation: 171 ml Capacity: 569 ml Compliance: normal Instability: yes Urge incontinence: no Stress incontinence: no at 357 ml VLPP: n/a DLPP: n/a EMG: normal Comments: Pressure Flow Study: Qmax: 4.5 ml/s Qave: 2 ml/s Pdet at Qmax: 42 cm H2O EMG: normal Residual: 339 ml Comments: AG plot shows flow to be obstructed to equivocal for obstruction Findings: C/W obstruction overall Plan: Likely bph effect given his cysto findings. Already on uroxatral. We discussed addition of proscar, trial of antispasmodic, and surgical intervention. He elects for proscar 5 mg daily, may see me in 6 months. Rohan Dodson MD Rohan Dodson MD PROCEDURE/MINOR LAURA RGICAL ORDERABLES * URINALYSIS AUTO - POINT OF CARE (AMB) [facility] (03/29/2023 10:29 AM ADMINISTRATIVE SUPPORT MANAGER) Only the most recent of2 resultswithin the time period is included. Glucose UA neg [facility] [address] Bilirubin UA POCT neg [facility] [address] Ketones UA POCT neg [facility] [address] Specific Arvilla UA 1.[address] [facility] [address] Blood Urine POCT neg [facility] [address] pH UA 6.5 [facility] [address] Protein UA neg [facility] [address] Urobilinogen UA 0.2 [facility] [address] Nitrite UA neg [facility] [address] WBC UA neg [facility] [address] Urine URINE / Unknown 03/29/2023 1 0:29 AM ADMINISTRATIVE SUPPORT MANAGER Rohan Dodson MD LAB - POINT OF CAR E ORDERABLES JOLYNN Steiner [place] [id number] [facility], [place] [address], [facility] [phone] * DERMATOPATHOLOGY (09/19/2020 12:00 AM CDT) Only the most recent of4 resultswithin the time period is included. Case Report Dermatopathology Report Case: [id number] Authorizing Provider: Jann Gay MD Collected: 09/19/2020 12:00 AM Ordering Location: [facility] DermPath Lab Received: 09/20/2020 01:35 PM Pathologist: Ora Vanegas MD Specimen: Skin, epigastrium 11:24 AM CDT DERMATOPATHOLOGY LABORATORY Final Diagnosis Specimen A. 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 11:24 AM CDT DERMATOPATHOLOGY LABORATORY Gross Description Specimen A: Received is one formalin filled container labeled with the patient's name and designated epigastrium. The specimen consists of a shave biopsy (2 pieces) measuring [id number] & [id number]. Jar 0. 11:24 AM CDT DERMATOPATHOLOGY LABORATORY Microscopic Description Specimen A. SKIN, epigastrium: Sections show acantholysis, dyskeratosis, and an inflammatory cell infiltrate. COMMENT: In the correct clinical setting these histological findings can be seen in transient acantholytic dermatosis (Troup's disease). 11:24 AM CDT DERMATOPATHOLOGY LABORATORY Disclaimer An external and internal positive and negative controls are appropriate for the histochemical, immunohistochemical and immunofluorescence stain(s) in this case (if any), except where stated explicitly. The performance characteristics of the stain(s) cited in this report were developed and its performance characteristic determined by the Dermatopathology Laboratory at [facility], directed by Dr. Art Ortiz. These tests need not be, and therefore are not, approved by the [place] Food and Drug Administration. The tests are used for clinical purposes. Billing Codes Specimen Charges Stain Charges 80076 1 1 11:24 AM CDT DERMATOPATHOLOGY LABORATORY Embedded Images 1 11:24 AM CDT DERMATOPATHOLOGY LABORATORY Pathology/Cytolog y TISSUE SPECIMEN FROM SKIN / Unknown 09/19/2020 09/20/2020 1:35 PM CDT Jann Gay MD LAB - PATHOLOGY/CYTO LOGY ORDERABLES DERMATOPATHOLOGY LABORATORY [facility] - Department of Dermatology [address], [address] [phone] * STREP A SCREEN (07/07/2016) Strep A Rapid POCT Negative Negative Strep A Internal Control Present Lot # [id number] Expiration Date [id number] Throat ENTIRE THROAT (SURFACE REGION OF NECK) / Unknown 07/07/2016 Shayne Lambetr JEWELRY STORE MANAGER-FIELD CARE COORDINATOR LAB - POINT OF CARE ORDERABLES Care Teams Refrigeration Plant Cork Insulator Relationship Specialty Start Date End Date Neil Akbar MD [address] [place] [address] PCP - General 03/13/21 Yobany Grimes MD [facility] [place] [address] Family Medicine 09/20/20
--- OUTSIDE RECORDS SUMMARY | 2024-05-27 12:15 | XMS_ITS | Referral Summary ---
Author Organization [facility] [address] Address [address] [place] [address] Care Team Providers Care Bullet Swaging Machine Operator Name Role Phone Neil Akbar MD Primary Care Provider [phone] Allergies Active Allergy Reactions Criticality Noted Date Comments Penicillins Hives Medium Medications finasteride (PROSCAR) 5 mg tablet Take 5 mg by mouth daily Active christian extract 500 mg capsule Take by mouth daily Active vitamin B complex capsule Take 1 capsule by mouth daily Active Active Problems Problem Noted Date Diagnosed Date GERD (gastroesophageal reflux disease) 0 OLGUIN (dyspnea on exertion) 07/02/2019 Loud snoring 07/02/2019 Chronic fatigue 07/02/2019 Rapid palpitations 07/02/2019 Chest pain 07/02/2019 Elevated blood pressure reading 07/02/2019 Social History Tobacco Use Types Packs/Day Years Used Date Smoking Tobacco: Never Smokeless Tobacco: Never Alcohol Use Standard Drinks/Week Comments Yes 2 (1 standard drink = 0.6 oz pur e alcohol) Personal Safety Answer Date Recorded Getting School Help Needed Not on file 06/08 Sex and Gender Information Value Date Recorded Sex Assigned at Not on file Legal Sex Male 4:02 AM 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 Gender Identity Not on file Sexual Orientation Not on file Last Filed Vital Signs Vital Sign Reading Time Taken Comments Blood Pressure 132/74 07/02/2019 10:00 AM CDT Pulse 64 07/02/2019 10:00 AM CDT Temperature 36.4 C (97.5 F) 08/10/2019 1:09 PM CDT Respiratory Rate - - Oxygen Saturation 94% 07/02/2019 10:00 AM CDT Inhaled Oxygen Concentration - - Weight 94.3 kg (208 lb) 08/11/2019 12:22 PM CDT Height 175.3 cm (5' 9 ) 08/11/2019 12:22 PM CDT Body Mass Index 30.72 08/11/2019 12:22 PM CDT Plan of Treatment Not on file Insurance [facility] Address: [facility] [id number] [place] [address] Care Teams Bullet Swaging Machine Operator Relationship Specialty Start Date End Date Neil Akbar MD [address] [address] PCP - General Family Medicine 07/01/19
--- OUTSIDE RECORDS SUMMARY | 2024-05-27 12:15 | XMS_ITS | Clinical Summary ---
Author Organization [facility] [address] [facility] [address] Address [address] [place] [address] Care Team Providers Care Plaster And Stucco Worker Name Role Phone Neil Akbar MD Primary Care Provider [phone] Allergies Active Allergy Reactions Criticality Noted Date [...] pain 07/02/2019 Elevated blood pressure reading 07/02/2019 Surgical History Surgery Date Site/Laterality Comments KNEE SURGERY Left x2 ELBOW SURGERY Left HAND SURGERY Left TRIGGER FINGER RELEASE Left Medical History Medical History Date Comments Psoriasis Cataract Enlarged prostate Family History Medical History Relation Name Comments Prostate cancer Father Breast cancer Mother Diabetes Mother's Sister Relation Name Status Comments Father (Age 92) Mother (Age 64) Mother's Sister Social History Tobacco Use Types Packs/Day Years Used Date Smoking Tobacco: Never Smokeless Tobacco: Never Alcohol Use Standard Drinks/Week Comments Yes 2 (1 standard drink = 0.6 oz pur e alcohol) Personal Safety Answer Date Recorded Getting School Help Needed Not on file 06/08 Sex and Gender Information Value Date Recorded Sex Assigned at Not on file Legal Sex Male 4:02 AM INFECTION PREVENTION SPECIALIST Gender Identity Not on file Sexual Orientation Not on file Obstetrics History Last Filed Vital Signs Vital Sign Reading [...] Plan of Treatment Not on file Insurance [facility] CHOICE PLUS Care Teams Plaster And Stucco Worker Relationship Specialty Start Date End Date Neil Akbar MD [address] [address] PCP - General Family Medicine 07/01/19
--- OUTSIDE RECORDS SUMMARY | 2024-05-27 12:15 | XMS_ITS | Encounter Summary ---
Author Organization [facility] Address [address] [place] [address] Care Team Providers Care Convex Grinder Operator Name Role Phone Yobany Grimes MD Primary Care Provider [phone] Yobany Grimes MD Unavailable Neil Akbar MD Primary Care Provider [phone] Encounter Details Date Type Department Care Team (Late Contact Info) Description 09/20/2020 Lab Requisition [facility] Care DermPath Lab [address] [facility], [facility] [place] [id number] Jann Gay MD [address] [place] [address] Social History Tobacco Use Types Packs/Day Years Used Date Smoking Tobacco: Never Sex and Gender Information Value Date Recorded Sex Assigned at Not on file Gender Identity Not on file Sexual Orientation Not on file documented as of this encounter Plan of Treatment Upcoming Encounters Date Type Department Care Team (Late Contact Info) Description 08/10/2024 1:30 PM CDT Office Visit [facility] - Urology [address] [place] [address] [address] [place] [id number] Naa Humphries, FIELD OPERATIONS MANAGER-ADMEASURER [address] [facility] DE[place] [address] documented as of this encounter Procedures Procedure Name Priority Date/Time Associated Diagnosis Comments DERMATOPATHOLOGY Routine 09/19/2020 12:0 0 AM CDT documented in this encounter Results * DERMATOPATHOLOGY (09/19/2020 12:00 AM CDT) Case Report Dermatopathology Report Case: [id number] Authorizing Provider: Jann Gay MD Collected: 09/19/2020 12:00 AM Ordering Location: [facility] DermPath Lab Received: 09/20/2020 01:35 [...] of a shave biopsy (2 pieces) measuring [id number] & [id number]. Jar 0. 11:24 AM CDT DERMATOPATHOLOGY LABORATORY Microscopic Description Specimen A. SKIN, epigastrium: Sections show acantholysis, dyskeratosis, and an inflammatory cell infiltrate. COMMENT: In the correct clinical setting these histological findings can be seen in transient acantholytic dermatosis ([place]'s disease). 11:24 AM CDT DERMATOPATHOLOGY LABORATORY Disclaimer An external and internal positive and negative controls are appropriate for the histochemical, immunohistochemical and immunofluorescence stain(s) in this case (if any), except where stated explicitly. The performance characteristics of the stain(s) cited in this report were developed and its performance characteristic determined by the Dermatopathology Laboratory at [facility], directed by Dr. Art Ortiz. These tests need not be, and therefore are not, approved by the [place] Food and Drug Administration. The tests are used for clinical purposes. Billing Codes Specimen Charges Stain Charges 18284 1 06/30/202 1 11:24 AM CDT DERMATOPATHOLOGY LABORATORY Embedded Images 1 11:24 AM CDT DERMATOPATHOLOGY LABORATORY Pathology/Cytolog y TISSUE SPECIMEN FROM SKIN / Unknown 09/19/2020 09/20/2020 1:35 PM CDT Jann Gay MD LAB - PATHOLOGY/CYTO LOGY ORDERABLES DERMATOPATHOLOGY LABORATORY [facility] - Department of Dermatology [address] [phone] documented in this encounter Visit Diagnoses Not on filedocumented in this encounter Care Teams Convex Grinder Operator Relationship Specialty Start Date End Date Yobany Grimes MD [address] [place] [address] PCP - General 09/20/20 03/12/21 Neil Akbar MD [address] [place] [address] PCP - General 03/13/21 Yobany Grimes MD [address] [place] [address] Family Medicine 09/20/20 documented as of this encounter
== END ==
LOC: EXPTROY 10:43
PROVIDERS: PCP Family Medicine; Visit Provider Family Medicine
DX: M54.2 Cervicalgia (principal); G89.29 Other chronic pain
CPT/HCPCS: 72050

== ENCOUNTER 2025-01-23 08:11 | Emergency (ER) | payer OTHER, SELFPAY ==
--- OUTSIDE RECORDS SUMMARY | 2025-01-23 08:13 | XMS_ITS | Clinical Summary ---
Author Organization [facility] [address] 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
--- OUTSIDE RECORDS SUMMARY | 2025-01-23 08:13 | XMS_ITS | Clinical Summary ---
Author Organization [facility] [email or web address] Address [address] [place] [address] Care Team Providers Care Clinical Staff Educator Name Role Phone Yobany Grimes MD Unavailable Neil Akbar MD Primary Care Provider [phone] Source Comments [facility] [email or web address],non-owned Affiliates and Associated Physician Practices is amultiple site organization consisting of ambulatory clinics and hospital sitesin [place], [place], [place] and [place]. This disclosure is being madepursuant to the Care Everywhere program and may not contain all informatio navailable regarding this patient. Last updated 17.[email or web address] Allergies Active Allergy Reactions Criticality Noted Date Comments Penicillins Urticaria Medium 07/07/2016 Medications * Be aware that medications may not be up to date on this document. Alwaysverify current medications with the patient. testosterone cypionate (Depo-Testoste romain) 200 MG/ML injection INJECT 200 MG INTRAMUSCULARLY WEEKLY A SINGLE DOSE 12/26/19 23 Active tadalafil (Cialis) 10 MG tabletIndicati ons:BPH with obstruction/lo wer urinary tract symptoms Take 1 (one) tablet by mouth once daily as needed 30 tablet 11 09/04/19 25 Active tamsulosin (Flomax) 0.4 MG capsule Take 1 (one) capsule by mouth once daily At the same time every day after a meal. 90 capsule 3 09/04/19 25 Active Active Problems Problem Noted Date Diagnosed [...] at Not on file Legal Sex Male 5:[address] TECHNOLOGIST Gender Identity Not on file Sexual Orientation Not on file Last Filed Vital Signs Vital Sign Reading Time Taken Comments Blood Pressure 128/88 09/03/2024 8:17 AM CDT Pulse 68 09/03/2024 8:17 AM CDT Temperature 36.8 C (98.3 F) 09/03/2024 8:17 AM CDT Respiratory Rate 17 09/03/2024 8:17 AM CDT Oxygen Saturation 96% 09/03/2024 8:17 AM CDT Inhaled Oxygen Concentration - - Weight 99.3 kg (219 lb) 09/03/2024 8:17 AM CDT Height 175.3 cm (5' 9) 09/03/2024 8:17 AM CDT Body Mass Index 32.34 09/03/2024 8:17 AM CDT Plan of Treatment Health Maintenance Due Date Last Done Comments [...] of 2) 12/16/2017 SCREENING FOR DIABETES 01/14/2023 DEPRESSION SCREENING 03/25/2024 COVID-19 VACCINE (1 - 2023-2 5 season) 2024 INFLUENZA VACCINE (#1) 2024 HIB VACCINE Aged Out No longer eligi ble based on patient's age to complete this topic HPV VACCINE Aged Out No longer eligi ble based on patient's age to complete this topic MENINGOCOCCAL (Group B) VACC INE SHARED DECISION-MAKING Aged Out No longer eligibl e based on patient's age to complete this topic MENINGOCOCCAL GROUPS A/C/Y/W VACCINE Aged Out No longer eligible b ased on patient's age to complete this topic Insurance [facility] Care Teams Clinical Staff Educator Relationship Specialty Start Date End Date Neil Akbar MD [address] [place] [address] PCP - General 03/13/21 Yobany Grimes MD [address] [place] [address] Family Medicine 09/20/20
--- OUTSIDE RECORDS SUMMARY | 2025-01-23 08:14 | XMS_ITS | Encounter Summary ---
Author Organization [facility] Address [address] [place] [address] Care Team Providers Care Air Launch Weapons Technician Name Role Phone Yobany Grimes MD Primary Care Provider [phone] Yobany Grimes MD Unavailable Neil Akbar MD Primary Care Provider Encounter Details Date Type Department Care Team (Late st Contact Info) Description 09/20/2020 Lab Requisition [facility] [address] [place] [id number] Jann Gay [place] [address] Social History Tobacco Use Types Packs/Day Years Used Date Smoking Tobacco: Never Sex and Gender Information Value Date Recorded Sex Assigned at Not on file 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 Gender Identity Not on file Sexual Orientation Not on file documented as of this encounter Plan of Treatment Not on file documented as of this encounter Procedures Procedure Name Priority Date/Time Associated Diagnosis Comments DERMATOPATHOLOGY Routine 09/19/2020 12:0 0 AM CDT documented in this encounter Results * DERMATOPATHOLOGY (09/19/2020 12:00 AM CDT) Case Report Dermatopathology Report Case: [id number] Authorizing Provider: Jann Gay MD Collected: 09/19/2020 12:00 AM Ordering Location: [facility] Received: 09/20/2020 01:35 PM Pathologist: Ora Vanegas MD Specimen: Skin, epigastrium 11:24 AM CDT DERMATOPATHOLOGY LABORATORY Final Diagnosis Specimen A. 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 11:24 AM CDT DERMATOPATHOLOGY LABORATORY Gross Description Specimen A: Received is one formalin filled container labeled with the patient's name and designated epigastrium. The specimen consists of a shave biopsy (2 pieces) measuring [id number] & [id number]. Jar 0. 11:24 AM CDT DERMATOPATHOLOGY LABORATORY Microscopic Description Specimen A. SKIN, epigastrium: Sections show acantholysis, dyskeratosis, and an inflammatory cell infiltrate. COMMENT: In the correct clinical setting these histological findings can be seen in transient acantholytic dermatosis (Dexter's disease). 11:24 AM CDT DERMATOPATHOLOGY LABORATORY Disclaimer An external and internal positive and negative controls are appropriate for the histochemical, immunohistochemical and immunofluorescence stain(s) in this case (if any), except where stated explicitly. The performance characteristics of the stain(s) cited in this report were developed and its performance characteristic determined by the Dermatopathology Laboratory at [facility], directed by Dr. Art Ortiz. These tests need not be, and therefore are not, approved by the [place] Food and Drug Administration. The tests are used for clinical purposes. Billing Codes Specimen Charges Stain Charges 29920 1 11:24 AM CDT DERMATOPATHOLOGY LABORATORY Embedded Images 11:24 AM CDT DERMATOPATHOLOGY LABORATORY Pathology/Cytolog y TISSUE SPECIMEN FROM SKIN / Unknown 09/19/2020 09/20/2020 1:35 PM CDT Jann Gay MD LAB - PATHOLOGY/CYTOLOGY ORD ERABLES Final Result DERMATOPATHOLOGY LABORATORY [facility] - Department of Dermatology [facility] [address] [place] [address], [address] [phone] documented in this encounter Visit Diagnoses Not on filedocumented in this encounter Care Teams Air Launch Weapons Technician Relationship Specialty Start Date End Date Yobany Grimes MD [address] [place] [address] PCP - General 09/20/20 03/12/21 Neil Akbar MD [address] [place] [address] PCP - General 03/13/21 Yobany Grimes MD [address] [place] [address] Family Medicine 09/20/20 documented as of this encounter
--- NOTE | 2025-01-23 08:21 | ED_ITS ---
HPI - General Adult General Chief complaint: Upper Respiratory Infection Stated complaint: Sore throat Time Seen by Provider: 01/23/25 08:22 Source: patient Mode of arrival: ambulatory Limitations: no limitations History of Present Illness HPI narrative: 59-year-old male patient presents to the [facility] with complaints of runny nose and sore throat that started yesterday. Denies fevers body aches or chills. Patient states he noticed that he started getting a little bit of a sinus headache yesterday and a runny nose on the right side of his nostril. Patient states when he laid down last night he had a lot of the drainage going back to the back of the throat. Patient states when he is up moving around he is not bothered by the drainage and denies any sore throat. Patient states he just wanted to come in and get checked out today because he was recently resumed released from the hospital for eye surgery. Patient states he does take a multivitamin and did take an aspirin today denies any antihistamine use prior to arrival. Related Data Home Medications ?Medication ?Instructions ?Recorded ?Confirmed ?Last Taken ?Type alfuzosin 10 mg tablet,extended 10 mg PO DAILY 3 01/23/25 09/26/22 History release 24 hr tadalafil 5 mg tablet (Cialis) 5 mg PO DAILY 08/26/23 01/23/25 Unknown History timolol maleate 0.5 % eye drops drp 01/23/25 Unknown History Allergies Allergy/AdvReac Type Severity Reaction Status Date / Time Penicillins Allergy Mild Hives Verified 01/23/25 08:13 Review of Systems Review of Systems: CONSTITUTIONAL: Denies fever, chills, or sweats. EYES: Denies visual changes, redness, or discharge. ENT: Positive rhinorrhea, congestion, sore throat, denies otalgia. CARDIOVASCULAR: Denies chest pain, palpitations, or edema. RESPIRATORY: Denies cough or dyspnea. GASTROINTESTINAL: Denies abdominal pain, nausea, vomiting, or diarrhea. GENITOURINARY: Denies dysuria or hematuria. SKIN: Denies rash or itching. MUSCULOSKELETAL: Denies back pain, joint pain, or myalgia. NEUROLOGIC: Denies headache, numbness, or weakness. PSYCHIATRIC: Denies anxiety or depression. [facility] Past Medical History Medical History Claustrophobia Migraine aura occurring with and without headache Worsening headaches MRI of the brain and brainstem on 07/27/2024 was normal except mild mucosal thickening of the sinuses. Chronic tension-type headache, not intractable Chronic neck pain X-ray of the cervical spine was normal on 05/27/2024. MRI of the C-spine on 06/15/2024 reveals mild cervical spondylosis with facet arthropathy worse at C3-C4 with moderate to severe left neuroforaminal stenosis and moderate right neuroforaminal stenosis. 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 Other person positive for hepatitis C. negative for hepatitis-B and HIV. Hypersomnia Snoring Influenza A (~05/27/23) BMI 32.0-32.9,adult muscular build BMI 31.0-31.9,adult Obesity (BMI 30.0-34.9) Decreased hearing of both ears Long-term current use of testosterone replacement therapy Polyp of colon colon polyp age [address] Nava with recheck in 5 years Chronic prostatitis/chronic pelvic pain syndrome Pharyngitis Encounter for wellness examination in adult Encounter for prostate cancer screening PSA 1.22 on 08/14/2021. PSA 1.66 on 07/16/2023. Hemorrhoids Family history of brain tumor Visual changes Headache COVID-19 (02/12/20) Exposure to COVID-19 virus Seasonal allergic rhinitis Acute non-recurrent maxillary sinusitis Chest pain Screening for malignant neoplasm of colon performed Shift work sleep disorder GERD (gastroesophageal reflux disease) BPH without obstruction/lower urinary tract symptoms Male erectile dysfunction, unspecified [facility].1 cc ([id number]/phentolanine3/[id number]) Hypogonadism male Testosterone 597 with free testosterone 96.2 on 08/14/2021. total testosterone 1085 with free testosterone 120.8 with hemoglobin 17.2 on 01/04/2022.Testosterone 569 with free testosterone 92.1 on 07/11/2022. Testosterone 776 with free testosterone 151.8 on 01/18/2023. Testosterone 729 with free testosterone 120.5 on 08/28/2024. Mixed hyperlipidemia Total cholesterol 181, triglycerides 114, HDL 55, LDL 105 on 08/14/2021. Cholesterol 180, triglycerides 233, HDL 50, LDL 95 on 07/11/2022. Total cholesterol 186, HDL 52, triglycerides 46, LDL 108 with ratio 3.6 on 01/18. Surgical History Surgical History H/O knee surgery (~2006) H/O knee surgery (~2008) H/O elbow surgery (~2016) H/O hand surgery (~2016) H/O eye surgery (~2018) Family History Family History Father Hypertension Family history of malignant neoplasm Mother Family history of malignant neoplasm Social History Social History Smoking status: Never smoker Alcohol intake: current Drinks per week: 5 Alcohol use details: beer Substance use: never Substance use type: does not use Lack of Transportation: No Lack of Food: Never True Current Housing: I Have Housing Concerned About Future Housing: No Difficulty Paying Gas/Electric Bills: No Difficulty Paying for Meds: No Currently Unemployed: No Education: Trade/Vocational Certificate Difficulty w/ Childcare or Family Care: No Living arrangements: with family Spiritual care concerns: No Comments At the time of my signature I agree with nursing past medical history, surgical, social, and family history. There is no relevant family history pertinent to the presenting complaint. Exam Narrative: GENERAL: Well-appearing, well-nourished, and in no acute distress. HEAD: Normocephalic, atraumatic. EYES: PERRLA and EOMI. ENT: Nares with erythema edema noted bilaterally, no active rhinorrhea or epistaxis. Mucous membranes moist. posterior pharynx with some postnasal drip noted no tonsillar enlargement no exudates or lesions present. Bilateral TMs are clear no erythema or foreign bodies the canal. NECK: Supple. No lymphadenopathy CHEST: Clear to auscultation. No respiratory distress. HEART: Regular rate and rhythm. No murmur heard. Normal peripheral pulses. ABDOMEN: Soft, nontender, nondistended, normal active bowel sounds. EXTREMITIES: Normal range of motion. No edema. SKIN: Warm, dry, no rash. NEURO: No focal deficits. Alert and oriented x3. Course Course Level of Care: Express Care Visit Reevaluation(s) Reevaluation #1: Re-evaluated patient notified him that his strep test today is positive. Discussed with patient we will discharge him home with an antibiotic for the strep infection and he can take Tylenol ibuprofen as needed for pain. Patient verbalized understanding denies any other questions or concerns at this time. Date: 01/23/25 Time: 08:38 Vital Signs Vital signs: Vital Signs Temperature 36.3 C L 01/23/25 08:25 Pulse Rate 64 01/23/25 08:25 Respiratory Rate 18 01/23/25 08:25 Blood Pressure 165/81 H 01/23/25 08:25 Pulse Oximetry 98 01/23/25 08:25 Oxygen Delivery Room Air 01/23/25 08:25 Temperature 36.3 C L 01/23/25 08:25 Pulse Rate 64 01/23/25 08:25 Respiratory Rate 18 01/23/25 08:25 Blood Pressure 165/81 H 01/23/25 08:25 Pulse Oximetry 98 01/23/25 08:25 Oxygen Delivery Room Air 01/23/25 08:25 Vital signs reviewed. The patient has been informed that they may have pre- hypertension or Hypertension based on a BP reading in the department. I recommend that the patient call the primary care provider listed on their discharge instructions or a physician of their choice this week to arrange follow up for further evaluation of possible pre-hypertension or Hypertension Medical Decision Making MDM Narrative Medical decision making narrative: Plan care patient is to swab him today for strep since he is having some sore throat symptoms. Discussed with patient he can use [id number] antihistamines to help with the runny nose as well as a nasal spray such as Flonase. I will reassess patient once the strep test has resulted. Differential Diagnosis Differential Diagnosis: Differential diagnosis: Allergic rhinitis, chronic sinusitis, tonsillitis, acute sinusitis, infectious mononucleosis, seasonal influenza, pertussis, diphtheria, meningococcal disease, viral syndrome, viral bronchitis, RSV, COVID- 19 Vital Signs Vital Signs: Vital Signs Temperature 36.3 C L 01/23/25 08:25 Pulse Rate 64 01/23/25 08:25 Respiratory Rate 18 01/23/25 08:25 Blood Pressure 165/81 H 01/23/25 08:25 Pulse Oximetry 98 01/23/25 08:25 Oxygen Delivery Room Air 01/23/25 08:25 Temperature 36.3 C L 01/23/25 08:25 Pulse Rate 64 01/23/25 08:25 Respiratory Rate 18 01/23/25 08:25 Blood Pressure 165/81 H 01/23/25 08:25 Pulse Oximetry 98 01/23/25 08:25 Oxygen Delivery Room Air 01/23/25 08:25 Critical Care Time Critical Care Time Critical Care Time: No Discharge Plan Discharge Clinical Impression: Acute streptococcal pharyngitis Patient Disposition: Home Condition: Stable Instructions: Antibiotic Form, Strep Throat (ED) Additional Instructions: -Take the medication as prescribed. Throw away the toothbrush after 24hours of antibiotic. -Eat things that are easy to swallow, like tea or soup, or popsicles to suck on. You might not feel like eating or drinking, but it's important that you get enough liquids. -Oral rinses such as: Salt water gargles and/or may use topical anesthetic (eg. Chloraseptic spray) or lozenges to relieve dryness or throat pain). -Take Tylenol and ibuprofen as needed for pain and fever as directed. -Frequent hand washing or hand per assessment nurse is one of the best ways to prevent spread of infection. -Follow up with primary care provider in 2-3 days if condition is not improving or seek ER visit if you start breathing fast/has trouble breathing, is not drinking enough fluids, muffle voice, difficulty opening the mouth. Patient Language: [place] Leonean Prescriptions: New azithromycin 500 mg tablet 500 mg PO DAILY 5 Days Qty: 5 0RF No Action timolol maleate 0.5 % drops tadalafil [Cialis] 5 mg tablet 5 mg PO DAILY hydrocortisone [Anusol-HC] 2.5 % cream with perineal applicator 1 applic RECTAL BID PRN (Reason: hemorrhoids) Qty: 30 11RF (DME) syringe with needle, safety 3 mL 18 gauge x 1 1/2 syringe See Rx Instructions .Route Qty: 50 1RF Rx Instructions: 18 gauge 1-1/2 inch needle,use once weekly to draw up testosterone (DME) BD SafetyGlide Needle 23 gauge x 1 needle See Rx Instructions .Route Qty: 50 1RF Rx Instructions: 23 gauge x 1 in, use weekly to inject testosterone meloxicam 15 mg tablet 15 mg PO DAILY PRN (Reason: pain) Qty: 30 11RF cyclobenzaprine 10 mg tablet 10 mg PO . q.h.s. PRN (Reason: muscle spasm) Qty: 30 3RF fluticasone propionate [Flonase Allergy Relief] 50 mcg/actuation spray,suspension 1 spray intranasal BID Qty: 16 11RF Rx Instructions: administer into each nostril euarjgxnny-hrqgdqhxrncky-fiqd 50-325-40 mg tablet 1 tablet PO Q6H PRN (Reason: pain) Qty: 60 1RF zolmitriptan [Zomig] 5 mg tablet See Rx Instructions PO .COMPLEX Qty: 14 11RF Rx Instructions: take 1 tab at onset of headache; if no relief, may repeat 1 tab after at le ast 2 hrs; max = 2 tabs/24 hrs PO diazepam 5 mg tablet 5 mg PO .COMPLEX PRN (Reason: claustrophobia) Qty: 4 0RF Rx Instructions: 5 mg orally take 1 or 2 tablets 1 hour before MRI PRN; testosterone cypionate 200 mg/mL oil 200 mg IM WEEKLY Qty: 10 2RF alfuzosin 10 mg tablet extended release 24 hr 10 mg PO DAILY Follow-up/Referrals: Neil Akbar MD [Primary Care Provider, Family Practice] Stand Alone Forms: Work/School Release IP Time of Disposition: 08:34
[2025-01-23 08:25] VITALS: BP 165/81; PULSE 64; RESP 18; TEMP 36.3; O2SAT 98
[2025-01-23 08:34] LABS: EDSTREPNEGPOS1 Positive (Negative)
== END 2025-01-23 08:36 | disposition home or self-care (01) ==
PROVIDERS: Emergency Provider Nurse Practitioner Family; PCP Family Medicine
DX: J02.0 Streptococcal pharyngitis (principal); K21.9 Gastro-esophageal reflux disease without esophagitis; N40.0 Benign prostatic hyperplasia without lower urinary tract symptoms; E78.2 Mixed hyperlipidemia; E66.9 Obesity, unspecified; Z68.32 Body mass index [BMI] 32.0-32.9, adult
CPT/HCPCS: 87880; 99213; G0463